=== PATIENT | female | born 1960 | race Caucasian/White ===

== ENCOUNTER → 2016-06-04 | Outpatient (CLI) | payer MEDICARE, OTHER | LOC: MAMO 05-31 15:00 | DX: Z12.31 Encounter for screening mammogram for malignant neoplasm of breast (principal); Z80.3 Family history of malignant neoplasm of breast | CPT/HCPCS: G0202 ==

== ENCOUNTER → 2016-06-24 | Outpatient (CLI) | payer MEDICARE, OTHER | LOC: MAMO 06-14 14:00 | DX: R92.8 Other abnormal and inconclusive findings on diagnostic imaging of breast (principal); N63 Unspecified lump in breast | CPT/HCPCS: G0206 ==

== ENCOUNTER → 2020-04-13 | Outpatient (CLI) | payer MEDICARE, OTHER ==
[~2020-04-13] MED LIST: REGLAN10 MG PO
== END ==
LOC: US 10:14
DX: R79.89 Other specified abnormal findings of blood chemistry (principal); Z90.49 Acquired absence of other specified parts of digestive tract
CPT/HCPCS: 76700

== ENCOUNTER → 2020-05-03 | Outpatient (CLI) | payer MEDICARE, OTHER | LOC: EMI 05-01 10:00 | DX: G93.49 Other encephalopathy (principal); H81.20 Vestibular neuronitis, unspecified ear; R90.82 White matter disease, unspecified | CPT/HCPCS: 70553; A9577 ==

== ENCOUNTER → 2021-01-05 | Outpatient (CLI) | payer MEDICARE, OTHER | LOC: MAMO 11-23 09:30 | DX: Z12.31 Encounter for screening mammogram for malignant neoplasm of breast (principal) | CPT/HCPCS: 77063; 77067 ==

== ENCOUNTER → 2021-05-02 | Outpatient (CLI) | payer MEDICARE, OTHER | LOC: RAD 15:52 | DX: R05.9 Cough, unspecified (principal) | CPT/HCPCS: 71046 ==